=== PATIENT | female | born 1935 | race Caucasian/White ===

== ENCOUNTER 2017-06-06 23:23 | Inpatient (IN) | payer BC, OTHER ==
[2017-06-07] MEDS ORDERED: DUONEB 0.5 MG/3 MG NEB ONE (00:40)
[2017-06-07] MEDS ORDERED: SOLU-Medrol 125 MG VIAL IVP ONE (00:40)
[2017-06-07] MEDS ORDERED: SOLU-Medrol 125 MG VIAL ONE (00:48)
--- NOTE | 2017-06-07 00:50 | DR.GENAD ---
HPI - PCP Primary Care Physician: Ashly LIZ - Complaint/Symptoms Chief Complaint Doctors Comments: Patient is complaining of SOB and problems breathing for the past two days. States she thought she was dying when she fist got her because she could not catch her breath. State she has a Symbicort inhaler that she got from her doctor today and has taken one dose today but it did not help. States she went to see her doctor in [place] today and his PA gave her the Symbicort inhaler. and she used it about two hours ago. State she is a patient of Dr. Liz in [place] and she does not have any home oxygen or nebulizers. States she has had a cough but denies fever or chills. She smokes 1/2 pack cigarettes daily but denies alcohol usage or drug usage. Chief Complaint:: TROUBLE BREATHING, HEADACHE, GENERALIZED WEAKNESS, CONGESTED Self Treatment fo Chief Complaint: WAS SEEN BY FAMILY DOCTOR TODAY. WAS GIVEN A SHOT AND CEFDINER 300MG BID LAST TAKEN AT 2230 AND 2 PUFF OF SYMBICORT AT 2230 - Nurses notes reviewed Nurses Notes Review: Yes - Source History Provided: Patient - Mode of Arrival Mode of Arrival: Ambulatory - Timing Onset of Chief Complaint: 06/04/17 Came on: Suddenly - Duration Duration: Constant How lon Duration: Hours - Location Location: SOB - Severity Severity: Severe - Modifying Factors Worsens:: walking Improves:: nothing PMH - PMH Past Medical History: Yes Past Medical History: Arthritis, COPD, Diabetes, Dyslipidemia, Hypertension, Sleep Apnea Past Surgical History: Yes Surgical History: Appendectomy, DETECTIVE AUTOMOBILE SECTION Surgery - Family History History of Family Medical Conditions: Yes Family Medical History: Diabetes Mellitus, [place], Hypertension Family Medical History Comment: cva - Social History Does patient currently use any type of tobacco product: Yes Have you used tobacco products in the last 12 months: Yes Type of Tobacco Use: Cigarettes How many years tobacco product used: 66 Does any household member use tobacco: No Alcohol Use: None Do you use any recreational Drugs:: No Lives With: Alone Lives Where: Home - infectious screening In the last 2 months have you had wt loss of >10#?: NO Have you had fever, night sweats or hemotysis?: No Have you traveled outside the country in the last 6 months?: No Isolation: Standard ROS - Review of Systems Constitutional: No Symptoms Reported, Weakness, Fatigue. negative: See HPI, Chills, Diaphoresis, Fever, Malaise, Irritable, Loss of Appetite, Other Eyes: No Symptoms Reported ENTM: No Symptoms Reported Respiratoy: No Symptoms Reported, Non-Productive Cough, Short of Breath, Wheezing. negative: See HPI, Productive Cough, Moist Cough, Dry Cough, Hacking Cough, Barking Cough, Brassy Cough, Orthopnea, Stridor, Hemoptysis, Other Cardiovascular: No Symptoms Reported. negative: See HPI, Chest Pain, Edema, Palpitations, Syncope, Cyanosis, Skin Mottling, Other Gastrointestinal/Abdominal: No Symptoms Reported. negative: See HPI, Abdominal Pain, Constipation, Diarrhea, Nausea, Vomiting, Food Intolerance, Other Genitourinary: No Symptoms Reported Neurological: No Symptoms Reported. negative: See HPI, Anxiety, Depressed, Emotional Problems, Headache, Numbness, Paresthesia, Pre-existing Deficit, Seizure, Tingling, Tremors, Weakness, Dizziness, Problems Walking, Speech Problem, Other Musculoskeletal: No Symptoms Reported Integumentary: No Symptoms Reported. negative: See HPI, Change in Color, Change in Hair/Nails, Dryness, Lesions, Lumps, Rash, Itching, Wound, Bruises, Juandice, Other Hematologic/Lymphatic: No Symptoms Reported Endocrine: No Symptoms Reported Psychiatric: No Symptoms Reported PE - Vital Signs Vitals: Temperature 97.6 F Pulse Rate [Left Radial] 59 Pulse Rate 59 Respiratory Rate 20 Blood Pressure [Left Arm] 209/94 Blood Pressure 152/64 O2 Sat by Pulse Oximetry 95 - General Limitations: No Limitations General Appearance: Alert, In Distress (moderate) - Head Head Exam: Normal Inspection, Atraumatic, Normocephalic - Eyes Eye exam: Normal Appearance, PERRL, EOMI. negative: Scleral Icterus, Conjunctival Injection, Nystagmus, Miosis, Mydrasis, Periorbital Swelling, Periorbital Tenderness, Other - ENT ENT Exam: Normal Exam, Normal Oropharynx, Normal External Ear Exam, Mucous Membranes Moist, TM's Normal Bilaterally External Ear Exam: Normal External Inspection TM/Canal Exam: Bilateral Normal Nose Exam: Normal Nose Exam Mouth Exam: Normal Inspection. negative: Drooling, Trismus, Lip Swelling, Tongue Elevation, Tongue Swelling, Laceration, Other Throat Exam: Normal Inspection. negative: Tonsillar Erythema, Tonsillomegaly, Tonsillar Exudate, R Peritonsillar Mass, L Peritonsillar Mass, Muffled Voice, Other - Neck Neck Exam: Normal Inspection, Full ROM, Trachea Midline. negative: Tenderness, Meningismus, Lymphadenopathy, Thyromegaly, Other - Chest Chest Inspection: Normal Inspection, Symmetric Chest Wall Rise - Respiratory Respiratory Exam: Normal Lung Sounds Bilat, Prolonged Expiratory Phase. negative: Accessory Muscle Use, Chest Wall Tenderness, Respiratory Distress, Stridor, Other Respiratory Exam: Bilateral Wheezing, Bilateral Rhonchi, Left Rales - Cardiovascular Cardiovascular Exam: Regular Rate, Normal Rhythm, Normal Heart Sounds, Systolic Murmur - Abdominal Exam Abdominal Exam: Normal Inspection, Normal Bowel Sounds, Soft. negative: Distention, Tenderness, Guarding, Rebound, Rigidity, Dimnished Bowel Sounds, Hyperactive Bowel Sounds, Hypoactive Bowel Sounds, Organomegaly, Trauma, Incision, Ascites, Mass, Bruit, Pulsatile Mass, Hernia, Other Abdominal Tenderness: negative: RUQ, RLQ, LUQ, LLQ, Epigastrium, Suprapubic, Diffuse, Mild, Moderate, Severe, Other - Extremities Extremities Exam: Normal Inspection, Full ROM, Normal Capillary Refill. negative: Tenderness, Edema, Joint Swelling, Calf Tenderness, Other - Back Back Exam: Normal Inspection, Full ROM. negative: Tenderness, (R) CVA Tenderness, (L) CVA Tenderness, Muscle Spasm, Paraspinal Tenderness, Vertebral Tenderness, Rashes, (R) Sciatic Notch Tenderness, (L) Sciatic Notch Tendern, (R ) Straight Leg Raise, (L) Straight Leg Raise, Other - Neurologic Neurological Exam: Alert, Oriented X3, CN II-XII Intact, Normal Gait, Reflexes Normal - Psychiatric Psychiatric Exam: Normal Affect, Normal Mood. negative: Depressed, Agitated, Anxious, Flat Affect, Manic, Homicidal Ideation, Suicidal Ideation, Other - Skin Skin Exam: Warm, Dry, Intact, Normal Color. negative: Rash, Cyanosis, Diaphoresis, Erythema, Pallor, Mottled, Other Course - Reevaluation 1st: Improved - Consultation Called: 03:06 Consultation Comments: [id number] awaiting return call from Dr. Johnson. Case management approved OBS admission status. - Education/Counseling Education/Counseling: Patient, Family Educated On: Treatment, Diagnosis, Needs for Follow Up ROR - Labs Reviewed Laboratory Results Reviewed?: Yes (all labs and x-ray results reviewed and discussed with patient and family) Result Diagrams: 06/07/17 00:54 06/07/17 00:54 Laboratory: WBC 5.8 X10^3/uL (3.6-10.0) 06/07/17 00:54 RBC 4.56 X10^6/uL (3.5-5.4) 06/07/17 00:54 Hgb 13.4 g/dL (12.0-16.0) 06/07/17 00:54 Hct 38.8 % (36.0-47.0) 06/07/17 00:54 MCV 85.2 fL (80.0-100.0) 06/07/17 00:54 MCH 29.5 pg (27.0-34.0) 06/07/17 00:54 MCHC 34.6 g/dL (33.0-35.0) 06/07/17 00:54 RDW 14.4 % (11.6-16.5) 06/07/17 00:54 Plt Count 177 X10^3/uL (150.0-450.0) 06/07/17 00:54 MPV 8.6 fL (7.4-11.0) 06/07/17 00:54 Neut % 77.5 % (42.0-75.0) H 06/07/17 00:54 Lymph % 10.2 % (21.0-51.0) L 06/07/17 00:54 [place] % 9.1 % (0.0-13.0) 06/07/17 00:54 Eos % 2.0 % (0.9-2.9) 06/07/17 00:54 Baso % 1.2 % (0.2-1.0) H 06/07/17 00:54 Neut # 4.5 x10^3/uL (2.2-4.8) 06/07/17 00:54 Lymph # 0.6 X10^3/uL (1.3-2.9) L 06/07/17 00:54 [place] # 0.5 x10^3/uL (0.3-0.8) 06/07/17 00:54 Eos # 0.1 x10^3/uL (0.0-0.2) 06/07/17 00:54 Baso # 0.1 X10^3/uL (0.0-0.1) 06/07/17 00:54 Absolute Nucleated RBC 0.0 /100WBC 06/07/17 00:54 INR Target Range - 06/07/17 00:54 INR 0.98 (0.8-1.3) 06/07/17 00:54 PTT 28.2 SECONDS (22.9-36.5) 06/07/17 00:54 PTT Comment - 06/07/17 00:54 D-Dimer 350 ng/mL (0-400) 06/07/17 00:54 Sodium 135 mmol/L (136-145) L 06/07/17 00:54 Corrected Sodium 137 mmol/L (136-145) 06/07/17 00:54 Potassium 3.9 mmol/L (3.5-5.1) 06/07/17 00:54 Chloride 99 mmol/L (98-107) 06/07/17 00:54 Carbon Dioxide 25.5 mmol/L (21-32) 06/07/17 00:54 BUN 27 mg/dL (7-18) H 06/07/17 00:54 Creatinine 1.39 mg/dL (0.55-1.02) H 06/07/17 00:54 Est GFR (MDRD) Af Amer 46 (>60) L 06/07/17 00:54 Est GFR (MDRD) Non-Af 38 (>60) L 06/07/17 00:54 Glucose 171 mg/dL (65-99) H 06/07/17 00:54 Calcium 9.3 mg/dL (8.5-10.1) 06/07/17 00:54 Corrected Calcium TNP 06/07/17 00:54 Magnesium 1.4 mg/dL (1.7-2.9) L 06/07/17 00:54 Total Bilirubin 0.40 mg/dL (0.2-1.0) 06/07/17 00:54 AST 23 Units/L (15-37) 06/07/17 00:54 ALT 26 Units/L (12-78) 06/07/17 00:54 Alkaline Phosphatase 67 Units/L (46-116) 06/07/17 00:54 Creatine Kinase 366 Units/L (26-192) H 06/07/17 00:54 CK-MB (CK-2) 4.0 ng/mL (0-4.0) 06/07/17 00:54 CK/CKMB % Calc 1.1 % (<4) 06/07/17 00:54 Troponin I < 0.02 ng/mL (0-1.5) 06/07/17 00:54 B-Natriuretic Peptide 63.9 pg/mL (0-79) 06/07/17 00:54 Total Protein 7.5 g/dL (6.4-8.2) 06/07/17 00:54 Albumin 3.8 g/dL (3.4-5.0) 06/07/17 00:54 Globulin 3.7 g/dL (2.5-4.5) 06/07/17 00:54 Albumin/Globulin Ratio 1.0 Ratio (1.1-2.1) L 06/07/17 00:54 - Diagnosis Discharge Problem: COPD with acute exacerbation, Hypoxemia, Accelerated hypertension, prob COngestive heart failure Bronchitis, acute Qualifiers: Bronchitis organism: other organism Qualified Code(s): J20.8 - Acute bronchitis due to other specified organisms - Discharge Plan Disposition: ADMITTED INPATIENT Condition: Stable - Follow ups/Referrals Follow ups/Referrals: JOS LIZ [Primary Care Provider] - 3 days - Instructions
[2017-06-07 01:03] LABS: BASOPHILS # (AUTO) 0.1 X10^3/uL (0.0-0.1); BASOPHILS % (AUTO) 1.2 % (0.2-1.0); EOSINOPHILS # (AUTO) 0.1 x10^3/uL (0.0-0.2); HEMATOCRIT 38.8 % (36.0-47.0); HEMOGLOBIN 13.4 g/dL (12.0-16.0); LYMPHOCYTES # (AUTO) 0.6 X10^3/uL (1.3-2.9); LYMPHOCYTES % (AUTO) 10.2 % (21.0-51.0); MEAN CORPUSCULAR HEMOGLOBIN 29.5 pg (27.0-34.0); MEAN CORPUSCULAR HGB CONC 34.6 g/dL (33.0-35.0); MEAN CORPUSCULAR VOLUME 85.2 fL (80.0-100.0); MEAN PLATELET VOLUME 8.6 fL (7.4-11.0); MONOCYTES # (AUTO) 0.5 x10^3/uL (0.3-0.8); MONOCYTES % (AUTO) 9.1 % (0.0-13.0); NEUTROPHILS # (AUTO) 4.5 x10^3/uL (2.2-4.8); NEUTROPHILS % (AUTO) 77.5 % (42.0-75.0); PLATELET COUNT 177 X10^3/uL (150.0-450.0); RED BLOOD COUNT 4.56 X10^6/uL (3.5-5.4); RED CELL DISTRIBUTION WIDTH 14.4 % (11.6-16.5); WHITE BLOOD COUNT 5.8 X10^3/uL (3.6-10.0)
[2017-06-07 01:24] LABS: BLOOD UREA NITROGEN 27 mg/dL (7-18); CALCIUM 9.3 mg/dL (8.5-10.1); CARBON DIOXIDE 25.5 mmol/L (21-32); CHLORIDE 99 mmol/L (98-107); COR NA(FOR HYPERGLY) 137 mmol/L (136-145); CREATININE 1.39 mg/dL (0.55-1.02); SODIUM 135 mmol/L (136-145); TROPONIN I < 0.02 ng/mL (0-1.5); eGFR BLACK RACES 46 (>60); eGFR NON BLACK RACES 38 (>60)
[2017-06-07 01:32] LABS: ALANINE AMINOTRANSFERASE 26 Units/L (12-78); ALBUMIN 3.8 g/dL (3.4-5.0); ALKALINE PHOSPHATASE 67 Units/L (46-116); ASPARTATE AMINO TRANSFERASE 23 Units/L (15-37); CKMB % 1.1 % (<4); CREATINE KINASE 366 Units/L (26-192); MAGNESIUM 1.4 mg/dL (1.7-2.9); TOTAL PROTEIN 7.5 g/dL (6.4-8.2)
--- NOTE | 2017-06-07 01:59 | RAD ---
Chest, one-view Indication: Shortness of breath Comparison: 01/17/2014 Findings: Heart size is normal for technique. There is mild right basilar atelectasis. No focal conso lidation, significant effusion or pneumothorax is identified. Osseous thorax is unremarkable. Impression: No acute cardiopulmonary abnormality. Reported By:
[2017-06-07] MEDS ORDERED: LASIX IVP ONE ×2 (02:13→02:18)
[2017-06-07] MEDS ORDERED: CATAPRES TAB 0.2 MG PO ONE (02:55)
[2017-06-07] MEDS ORDERED: LEVAQUIN PREMIX IV 500 MG 500 MG/100 ML BAG IV ONE ×2 (02:56→03:04)
[2017-06-07] MEDS ORDERED: CATAPRES TAB 0.2 MG ONE (03:04)
[2017-06-07] MEDS ORDERED: DUONEB 0.5 MG/3 MG NEB SCH (05:00)
[2017-06-07 05:47] VITALS: BMI 26.3
[2017-06-07 06:16] LABS: CALCIUM 9.5 mg/dL (8.5-10.1); CARBON DIOXIDE 28.3 mmol/L (21-32); CREATININE 1.52 mg/dL (0.55-1.02)
[2017-06-07] MEDS: HumuLIN R SC SCH ×4 (06:49→21:25)
[2017-06-07] MEDS: NS 1000 ML 1,000 ML IV SCH (06:50)
[2017-06-07] MEDS ORDERED: XOPENEX 1.25 MG/3 ML NEBULE NEB SCH (07:00)
[2017-06-07] MEDS ORDERED: LEVAQUIN PREMIX IV 500 MG 500 MG/100 ML BAG IV SCH (09:00)
[2017-06-07] MEDS: ASPIRIN EC 81 MG PO SCH (09:18)
[2017-06-07] MEDS: XOPENEX 1.25 MG/3 ML NEBULE NEB SCH ×4 (09:32→21:25)
[2017-06-07] MEDS: LOPRESSOR TAB 25 MG PO SCH ×2 (10:38→21:24)
[2017-06-07] MEDS ORDERED: TYLENOL 325 MG TAB PO ONE (14:29)
[2017-06-07 14:31] LABS: BILIRUBIN,URINE NEGATIVE (NEGATIVE); BLOOD/HEMOGLOBIN,URINE NEGATIVE (NEGATIVE); GLUCOSE, URINE 4+ (NEGATIVE); KETONES,URINE NEGATIVE (NEGATIVE); LEUKOCYTE ESTERASE ,URINE NEGATIVE (NEGATIVE); NITRITES,URINE NEGATIVE (NEGATIVE); PROTEIN,URINE NEGATIVE (NEGATIVE); UROBILINOGEN,URINE NORMAL (NORMAL)
[2017-06-07 14:36] LABS: APPEARANCE,URINE HAZY (CLEAR); COLOR,URINE YELLOW (YELLOW)
[2017-06-07 14:46] LABS: BACTERIA,URINE NEGATIVE /HPF (NEGATIVE); RBC,URINE 0-2 /HPF (NEGATIVE); SQUAMOUS EPITHELIAL CELL,UR NEGATIVE /HPF (NEGATIVE)
[2017-06-07] MEDS: RESTORIL CAP 15 MG PO PRN (21:24)
[2017-06-07] MEDS: TYLENOL 325 MG TAB PO PRN (22:02)
[2017-06-08] MEDS: NS 1000 ML 1,000 ML IV SCH (05:50)
[2017-06-08] MEDS: HumuLIN R SC SCH ×5 (05:57→21:46)
[2017-06-08 06:18] LABS: BASOPHILS % (AUTO) 0.1 % (0.2-1.0); EOSINOPHILS % (AUTO) 0.1 % (0.9-2.9); HEMATOCRIT 35.8 % (36.0-47.0); HEMOGLOBIN 12.7 g/dL (12.0-16.0); LYMPHOCYTES # (AUTO) 0.7 X10^3/uL (1.3-2.9); LYMPHOCYTES % (AUTO) 8.3 % (21.0-51.0); MEAN CORPUSCULAR HEMOGLOBIN 29.9 pg (27.0-34.0); MEAN CORPUSCULAR HGB CONC 35.4 g/dL (33.0-35.0); MEAN CORPUSCULAR VOLUME 84.5 fL (80.0-100.0); MEAN PLATELET VOLUME 9.1 fL (7.4-11.0); MONOCYTES # (AUTO) 0.5 x10^3/uL (0.3-0.8); MONOCYTES % (AUTO) 6.7 % (0.0-13.0); NEUTROPHILS # (AUTO) 6.7 x10^3/uL (2.2-4.8); NEUTROPHILS % (AUTO) 84.8 % (42.0-75.0); PLATELET COUNT 173 X10^3/uL (150.0-450.0); RED BLOOD COUNT 4.24 X10^6/uL (3.5-5.4); RED CELL DISTRIBUTION WIDTH 14.5 % (11.6-16.5)
[2017-06-08 06:37] LABS: ALANINE AMINOTRANSFERASE 24 Units/L (12-78); ALBUMIN 3.5 g/dL (3.4-5.0); ALKALINE PHOSPHATASE 55 Units/L (46-116); ASPARTATE AMINO TRANSFERASE 24 Units/L (15-37); BLOOD UREA NITROGEN 31 mg/dL (7-18); CARBON DIOXIDE 27.1 mmol/L (21-32); CHLORIDE 97 mmol/L (98-107); COR NA(FOR HYPERGLY) 135 mmol/L (136-145); CREATININE 1.23 mg/dL (0.55-1.02); SODIUM 133 mmol/L (136-145); eGFR BLACK RACES 53 (>60); eGFR NON BLACK RACES 44 (>60)
[2017-06-08] MEDS: XOPENEX 1.25 MG/3 ML NEBULE NEB SCH ×4 (08:48→20:43)
[2017-06-08] MEDS: LEVAQUIN PREMIX IV 250 MG 250 MG/50 ML BAG IV SCH (09:23)
[2017-06-08] MEDS: LOPRESSOR TAB 25 MG PO SCH ×3 (09:23→21:46)
[2017-06-08] MEDS: ASPIRIN EC 81 MG PO SCH (09:23)
[2017-06-08] MEDS: SOLU-Medrol 40 MG VIAL IVP SCH ×2 (09:29→16:33)
[2017-06-08] MEDS ORDERED: ASCORBIC ACID PO SCH (17:45)
[2017-06-08] MEDS ORDERED: GLIPIZIDE PO SCH (21:00)
[2017-06-08] MEDS ORDERED: PATIENT'S HOME MEDICATION (Simvastatin [Simvastatin] 1 TAB) PO SCH (21:00)
[2017-06-08] MEDS: K-DUR TAB 20 MEQ PO SCH (21:44)
[2017-06-08] MEDS: TYLENOL 325 MG TAB PO PRN (21:44)
[2017-06-08] MEDS: ZOCOR TAB 40 MG PO SCH (21:45)
[2017-06-09] MEDS: SOLU-Medrol 40 MG VIAL IVP SCH ×3 (01:46→17:02)
[2017-06-09 05:22] LABS: ALANINE AMINOTRANSFERASE 28 Units/L (12-78); ALBUMIN 3.6 g/dL (3.4-5.0); ALKALINE PHOSPHATASE 58 Units/L (46-116); ASPARTATE AMINO TRANSFERASE 38 Units/L (15-37); BLOOD UREA NITROGEN 35 mg/dL (7-18); CALCIUM 9.1 mg/dL (8.5-10.1); CARBON DIOXIDE 27.2 mmol/L (21-32); CHLORIDE 97 mmol/L (98-107); COR NA(FOR HYPERGLY) 137 mmol/L (136-145); CREATININE 1.24 mg/dL (0.55-1.02); SODIUM 133 mmol/L (136-145); TOTAL PROTEIN 7.3 g/dL (6.4-8.2); eGFR BLACK RACES 53 (>60); eGFR NON BLACK RACES 44 (>60)
[2017-06-09 05:34] LABS: BASOPHILS % (AUTO) 0.1 % (0.2-1.0); HEMATOCRIT 37.4 % (36.0-47.0); HEMOGLOBIN 13.1 g/dL (12.0-16.0); LYMPHOCYTES # (AUTO) 0.5 X10^3/uL (1.3-2.9); LYMPHOCYTES % (AUTO) 5.5 % (21.0-51.0); MEAN CORPUSCULAR HEMOGLOBIN 30.2 pg (27.0-34.0); MEAN CORPUSCULAR HGB CONC 35.2 g/dL (33.0-35.0); MEAN CORPUSCULAR VOLUME 85.8 fL (80.0-100.0); MEAN PLATELET VOLUME 9.2 fL (7.4-11.0); MONOCYTES # (AUTO) 0.1 x10^3/uL (0.3-0.8); MONOCYTES % (AUTO) 1.6 % (0.0-13.0); NEUTROPHILS % (AUTO) 92.8 % (42.0-75.0); PLATELET COUNT 168 X10^3/uL (150.0-450.0); RED BLOOD COUNT 4.35 X10^6/uL (3.5-5.4); RED CELL DISTRIBUTION WIDTH 14.2 % (11.6-16.5); WHITE BLOOD COUNT 8.6 X10^3/uL (3.6-10.0)
[2017-06-09] MEDS: NS 1000 ML 1,000 ML IV SCH (05:57)
[2017-06-09 06:07] LABS: PLATELET MORPHOLOGY COMMENT NORMAL (NORMAL)
[2017-06-09] MEDS: GLUCOTROL PO SCH ×2 (06:19→16:58)
[2017-06-09] MEDS: HumuLIN R SC SCH ×4 (06:19→20:38)
[2017-06-09] MEDS ORDERED: MAGNESIUM OXIDE 200 MG PO SCH (09:00)
[2017-06-09] MEDS: LEVAQUIN PREMIX IV 250 MG 250 MG/50 ML BAG IV SCH (09:00)
[2017-06-09] MEDS ORDERED: PATIENT'S HOME MEDICATION (Cholecalciferol (Vitamin D3) [Vitamin D3] 1 TAB) PO SCH (09:00)
[2017-06-09] MEDS ORDERED: PATIENT'S HOME MEDICATION (Losartan Potassium [Losartan Potassium] 1 TAB) PO SCH (09:00)
[2017-06-09] MEDS: VITAMIN D3 PO SCH (09:14)
[2017-06-09] MEDS: MAXZIDE 37.5/25 MG PO SCH (09:14)
[2017-06-09] MEDS: VITAMIN C PO SCH (09:15)
[2017-06-09] MEDS: ASPIRIN EC 81 MG PO SCH (09:15)
[2017-06-09] MEDS: LOPRESSOR TAB 25 MG PO SCH ×2 (09:15→20:36)
[2017-06-09] MEDS: COZAAR PO SCH (09:16)
[2017-06-09] MEDS: MAG-OX TAB PO SCH (09:17)
[2017-06-09] MEDS: XOPENEX 1.25 MG/3 ML NEBULE NEB SCH ×3 (09:46→20:50)
--- NOTE | 2017-06-09 10:48 | RAD ---
Examination: Portable AP chest History: COPD, SOB Comparison reference: 06/07/2017 Findings: Continued normal heart size. There is no acute pulmonary or pleural abnormality demonstrate d. Soft tissue densities at the right and left cardiophrenic angles consistent with prominent epicard ial fat pads. There is no evidence for pneumonia, pulmonary edema or pneumothorax. Impression: No acute process demonstrated. Reported By:
[2017-06-09] MEDS: SNACK - Diabetic Appropriate PO SCH ×2 (10:49→21:28)
--- NOTE | 2017-06-09 14:25 | CT ---
HISTORY: Diminished breath sounds at the lung bases, shortness of breath, COPD Study: CT chest without contrast Comparison: Same day radiograph Technique: Multiple axial images of the chest were obtained from the thoracic inlet to the upper abdo men without IV contrast. Dose reduction techniques including Automated Exposure Control (AEC) and ad justment of mA and kV were utilized. Findings: Please note evaluation is limited without IV contrast. Vessel patency not assessed. Normal appearance of the heart and pericardium. There is scattered calcified plaque in the thoracic aorta which is nor mal caliber. The lungs are clear without effusion, consolidation, or pneumothorax. Airways are patent . No bulky lymphadenopathy identified. The soft tissues and osseous structures appear intact. The visualized portions of the upper abdomen a re grossly unremarkable. IMPRESSION: 1.Negative noncontrast chest CT. Reported By:
[2017-06-09] MEDS: ROBITUSSIN DM PO PRN ×2 (16:00→20:37)
[2017-06-09] MEDS: PULMICORT NEB TX 0.5 MG NEB SCH ×2 (16:25→20:50)
[2017-06-09] MEDS: VISTARIL PO PRN (19:05)
[2017-06-09] MEDS: ZOCOR TAB 40 MG PO SCH (20:36)
[2017-06-09] MEDS: K-DUR TAB 20 MEQ PO SCH (20:36)
[2017-06-10] MEDS: SOLU-Medrol 40 MG VIAL IVP SCH ×3 (01:11→16:46)
[2017-06-10] MEDS: NS 1000 ML 1,000 ML IV SCH ×2 (04:58→16:49)
[2017-06-10 05:34] LABS: ALANINE AMINOTRANSFERASE 34 Units/L (12-78); ALBUMIN 3.6 g/dL (3.4-5.0); ALKALINE PHOSPHATASE 59 Units/L (46-116); ASPARTATE AMINO TRANSFERASE 37 Units/L (15-37); BLOOD UREA NITROGEN 30 mg/dL (7-18); CALCIUM 8.8 mg/dL (8.5-10.1); CARBON DIOXIDE 26.7 mmol/L (21-32); CHLORIDE 93 mmol/L (98-107); COR NA(FOR HYPERGLY) 134 mmol/L (136-145); CREATININE 1.07 mg/dL (0.55-1.02); SODIUM 131 mmol/L (136-145); TOTAL PROTEIN 7.2 g/dL (6.4-8.2); eGFR BLACK RACES > 60 (>60); eGFR NON BLACK RACES 52 (>60)
[2017-06-10] MEDS: HumuLIN R SC PRN ×3 (05:38→21:01)
[2017-06-10 06:17] LABS: BASOPHILS % (AUTO) 0 % (0.2-1.0); HEMATOCRIT 39.3 % (36.0-47.0); HEMOGLOBIN 13.7 g/dL (12.0-16.0); LYMPHOCYTES # (AUTO) 0.4 X10^3/uL (1.3-2.9); LYMPHOCYTES % (AUTO) 3.8 % (21.0-51.0); MEAN CORPUSCULAR HEMOGLOBIN 29.6 pg (27.0-34.0); MEAN CORPUSCULAR VOLUME 84.6 fL (80.0-100.0); MEAN PLATELET VOLUME 9.2 fL (7.4-11.0); MONOCYTES # (AUTO) 0.2 x10^3/uL (0.3-0.8); MONOCYTES % (AUTO) 1.8 % (0.0-13.0); NEUTROPHILS # (AUTO) 8.9 x10^3/uL (2.2-4.8); NEUTROPHILS % (AUTO) 94.4 % (42.0-75.0); PLATELET COUNT 185 X10^3/uL (150.0-450.0); RED BLOOD COUNT 4.64 X10^6/uL (3.5-5.4); WHITE BLOOD COUNT 9.4 X10^3/uL (3.6-10.0)
[2017-06-10 06:57] LABS: BAND NEUTROPHILS % 1 % (0-10); PLATELET MORPHOLOGY COMMENT NORMAL (NORMAL)
[2017-06-10] MEDS: VITAMIN C PO SCH (09:11)
[2017-06-10] MEDS: GLUCOTROL PO SCH ×2 (09:11→16:46)
[2017-06-10] MEDS: MAG-OX TAB PO SCH (09:11)
[2017-06-10] MEDS: COZAAR PO SCH (09:12)
[2017-06-10] MEDS: MAXZIDE 37.5/25 MG PO SCH (09:12)
[2017-06-10] MEDS: LOPRESSOR TAB 25 MG PO SCH ×2 (09:12→21:00)
[2017-06-10] MEDS: ASPIRIN EC 81 MG PO SCH (09:12)
[2017-06-10] MEDS: LEVAQUIN PREMIX IV 250 MG 250 MG/50 ML BAG IV SCH (09:14)
[2017-06-10] MEDS ORDERED: COZAAR PO SCH (09:30)
[2017-06-10] MEDS: XOPENEX 1.25 MG/3 ML NEBULE NEB SCH ×3 (09:39→16:19)
[2017-06-10] MEDS: PULMICORT NEB TX 0.5 MG NEB SCH ×2 (09:39→20:49)
[2017-06-10] MEDS: ROBITUSSIN DM PO PRN ×3 (09:55→21:00)
[2017-06-10] MEDS: VISTARIL PO PRN ×2 (09:58→21:01)
[2017-06-10] MEDS: VITAMIN D3 PO SCH (09:59)
[2017-06-10] MEDS ORDERED: CATAPRES TAB 0.1 MG ONE (16:39)
[2017-06-10] MEDS ORDERED: CATAPRES TAB 0.1 MG PO ONE (16:53)
[2017-06-10] MEDS: SNACK - Diabetic Appropriate PO SCH (20:11)
[2017-06-10] MEDS: Atrovent NEB TX 0.02% NEB SCH (20:49)
[2017-06-10] MEDS: ZOCOR TAB 40 MG PO SCH (21:00)
[2017-06-10] MEDS: K-DUR TAB 20 MEQ PO SCH (21:00)
[2017-06-11] MEDS: NS 1000 ML 1,000 ML IV SCH (04:29)
[2017-06-11 05:23] LABS: ALANINE AMINOTRANSFERASE 37 Units/L (12-78); ALBUMIN 3.4 g/dL (3.4-5.0); ALKALINE PHOSPHATASE 52 Units/L (46-116); ASPARTATE AMINO TRANSFERASE 38 Units/L (15-37); BLOOD UREA NITROGEN 29 mg/dL (7-18); CALCIUM 8.4 mg/dL (8.5-10.1); CARBON DIOXIDE 29.2 mmol/L (21-32); CHLORIDE 93 mmol/L (98-107); COR NA(FOR HYPERGLY) 132 mmol/L (136-145); CREATININE 0.99 mg/dL (0.55-1.02); SODIUM 129 mmol/L (136-145); TOTAL PROTEIN 6.7 g/dL (6.4-8.2); eGFR BLACK RACES > 60 (>60); eGFR NON BLACK RACES 57 (>60)
[2017-06-11 05:38] LABS: BASOPHILS % (AUTO) 0.1 % (0.2-1.0); HEMATOCRIT 38.8 % (36.0-47.0); HEMOGLOBIN 13.5 g/dL (12.0-16.0); LYMPHOCYTES # (AUTO) 0.3 X10^3/uL (1.3-2.9); LYMPHOCYTES % (AUTO) 4.3 % (21.0-51.0); MEAN CORPUSCULAR HEMOGLOBIN 29.7 pg (27.0-34.0); MEAN CORPUSCULAR HGB CONC 34.8 g/dL (33.0-35.0); MEAN CORPUSCULAR VOLUME 85.3 fL (80.0-100.0); MEAN PLATELET VOLUME 8.9 fL (7.4-11.0); MONOCYTES # (AUTO) 0.3 x10^3/uL (0.3-0.8); MONOCYTES % (AUTO) 4.8 % (0.0-13.0); NEUTROPHILS # (AUTO) 6.4 x10^3/uL (2.2-4.8); NEUTROPHILS % (AUTO) 90.8 % (42.0-75.0); PLATELET COUNT 167 X10^3/uL (150.0-450.0); RED BLOOD COUNT 4.56 X10^6/uL (3.5-5.4); RED CELL DISTRIBUTION WIDTH 14.1 % (11.6-16.5)
[2017-06-11 05:56] LABS: PLATELET MORPHOLOGY COMMENT NORMAL (NORMAL)
[2017-06-11] MEDS: HumuLIN R SC PRN ×3 (06:02→17:09)
[2017-06-11] MEDS: LOPRESSOR TAB 25 MG PO SCH ×2 (09:08→20:44)
[2017-06-11] MEDS: LEVAQUIN PREMIX IV 250 MG 250 MG/50 ML BAG IV SCH (09:08)
[2017-06-11] MEDS: ASPIRIN EC 81 MG PO SCH (09:08)
[2017-06-11] MEDS: MAG-OX TAB PO SCH (09:08)
[2017-06-11] MEDS: VITAMIN C PO SCH (09:08)
[2017-06-11] MEDS: GLUCOTROL PO SCH ×2 (09:09→17:09)
[2017-06-11] MEDS: VITAMIN D3 PO SCH (09:09)
[2017-06-11] MEDS: COZAAR PO SCH (09:09)
[2017-06-11] MEDS: MAXZIDE 37.5/25 MG PO SCH (09:09)
[2017-06-11] MEDS: PULMICORT NEB TX 0.5 MG NEB SCH ×2 (09:11→20:27)
[2017-06-11] MEDS: Atrovent NEB TX 0.02% NEB SCH ×4 (09:12→20:27)
[2017-06-11] MEDS: ROBITUSSIN DM PO PRN ×2 (10:34→20:44)
[2017-06-11] MEDS ORDERED: CATAPRES TAB 0.1 MG PO ONE (15:34)
[2017-06-11] MEDS: VISTARIL PO PRN (20:44)
[2017-06-11] MEDS: ZOCOR TAB 40 MG PO SCH (20:44)
[2017-06-11] MEDS: K-DUR TAB 20 MEQ PO SCH (20:49)
[2017-06-11] MEDS: SNACK - Diabetic Appropriate PO SCH (20:52)
[2017-06-12 06:06] LABS: BASOPHILS % (AUTO) 0.1 % (0.2-1.0); EOSINOPHILS % (AUTO) 0.1 % (0.9-2.9); HEMATOCRIT 39.8 % (36.0-47.0); HEMOGLOBIN 13.9 g/dL (12.0-16.0); LYMPHOCYTES # (AUTO) 0.6 X10^3/uL (1.3-2.9); LYMPHOCYTES % (AUTO) 9.6 % (21.0-51.0); MEAN CORPUSCULAR HEMOGLOBIN 29.9 pg (27.0-34.0); MEAN CORPUSCULAR HGB CONC 34.9 g/dL (33.0-35.0); MEAN CORPUSCULAR VOLUME 85.7 fL (80.0-100.0); MEAN PLATELET VOLUME 8.7 fL (7.4-11.0); MONOCYTES # (AUTO) 0.7 x10^3/uL (0.3-0.8); MONOCYTES % (AUTO) 10.6 % (0.0-13.0); NEUTROPHILS % (AUTO) 79.6 % (42.0-75.0); PLATELET COUNT 148 X10^3/uL (150.0-450.0); RED BLOOD COUNT 4.64 X10^6/uL (3.5-5.4); RED CELL DISTRIBUTION WIDTH 13.8 % (11.6-16.5); WHITE BLOOD COUNT 6.2 X10^3/uL (3.6-10.0)
[2017-06-12] MEDS: GLUCOTROL PO SCH ×2 (06:07→16:43)
[2017-06-12 06:13] LABS: ALANINE AMINOTRANSFERASE 38 Units/L (12-78); ALBUMIN 3.1 g/dL (3.4-5.0); ALKALINE PHOSPHATASE 51 Units/L (46-116); ASPARTATE AMINO TRANSFERASE 36 Units/L (15-37); BLOOD UREA NITROGEN 36 mg/dL (7-18); CALCIUM 8.5 mg/dL (8.5-10.1); CARBON DIOXIDE 28.8 mmol/L (21-32); CHLORIDE 93 mmol/L (98-107); COR CA(FOR HYPOALB) 9.2 mg/dL (8.5-10.1); COR NA(FOR HYPERGLY) 131 mmol/L (136-145); CREATININE 1.05 mg/dL (0.55-1.02); SODIUM 130 mmol/L (136-145); TOTAL PROTEIN 6.2 g/dL (6.4-8.2); eGFR BLACK RACES > 60 (>60); eGFR NON BLACK RACES 53 (>60)
[2017-06-12] MEDS: NS 1000 ML 1,000 ML IV SCH (06:14)
[2017-06-12] MEDS ORDERED: MAG-OX TAB PO PRN (06:30)
[2017-06-12] MEDS ORDERED: K-LYTE EFFERVESCENT PO PRN (06:30)
[2017-06-12] MEDS ORDERED: MAGNESIUM SULFATE 1 GM/100 mL PREMIX 1 GM/100 ML BAG IV PRN (06:30)
[2017-06-12] MEDS: K-RIDER 10 MEQ/NS 100 ML 10 MEQ/100 ML BAG IV PRN ×4 (07:19→11:50)
[2017-06-12] MEDS: VITAMIN C PO SCH (08:49)
[2017-06-12] MEDS: ASPIRIN EC 81 MG PO SCH (08:50)
[2017-06-12] MEDS: MAG-OX TAB PO SCH (08:50)
[2017-06-12] MEDS: MAXZIDE 37.5/25 MG PO SCH (08:50)
[2017-06-12] MEDS: LOPRESSOR TAB 25 MG PO SCH ×2 (08:51→20:46)
[2017-06-12] MEDS: COZAAR PO SCH (08:51)
[2017-06-12] MEDS: LEVAQUIN PREMIX IV 250 MG 250 MG/50 ML BAG IV SCH (08:54)
[2017-06-12] MEDS: VITAMIN D3 PO SCH (08:54)
[2017-06-12] MEDS: ROBITUSSIN DM PO PRN ×2 (08:55→20:46)
[2017-06-12] MEDS: Atrovent NEB TX 0.02% NEB SCH ×4 (09:43→20:15)
[2017-06-12] MEDS: PULMICORT NEB TX 0.5 MG NEB SCH (09:43)
--- NOTE | 2017-06-12 09:55 | RAD ---
HISTORY: COPD. Exacerbation. Hypoxia. Study: AP upright chest Comparison: CT 06/09/2017, plain films 06/09/2017 Findings: Mild hyperinflation noted. The lungs are clear. The heart size is normal. Mild tortuosity of the aort a is present. IMPRESSION: 1. Mild hyperinflation. 2. No radiographic evidence of acute cardiopulmonary disease or significant change is noted when comp ared to the prior examination. Reported By:
--- NOTE | 2017-06-12 13:39 | DR.H&P ---
H&P - History & Physical for Day of: H&P Date: 06/07/17 - Chief Complaint Chief Complaint: CCC, SOB - Allergies Allergies/Adverse Reactions: Allergies Allergy/AdvReac Type Severity Reaction Status Date / Time alendronate sodium Allergy Verified 06/07/17 00:56 [From Fosamax] Penicillins Allergy Verified 06/06/17 23:46 Sulfa (Sulfonamide Allergy Verified 06/07/17 00:56 Antibiotics) [SULFA] - History of Present Illness History of Present Illness: Patient is complaining of SOB and problems breathing for the past two days. States she thought she was dying when she fist got her because she could not catch her breath. State she has a Symbicort inhaler that she got from her doctor today and has taken one dose today but it did not help. States she went to see her doctor in [place] today and his PA gave her the Symbicort inhaler. and she used it about two hours ago. State she is a patient of Dr. Liz in [place] and she does not have any home oxygen or nebulizers. States she has had a cough but denies fever or chills. She smokes 1/2 pack cigarettes daily but denies alcohol usage or drug usage. 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 - Family History Family Medical History: Diabetes Mellitus, [place], Hypertension - Social History Does patient currently use any type of tobacco product: Yes Have you used tobacco products in the last 12 months: Yes Type of Tobacco Use: Cigarettes How many years tobacco product used: 66 Does any household member use tobacco: No Alcohol Use: None Drug Use: None - Medications Home Medications: Budesonide-Formoterol [SYMBICORT INH 160-4.5 mcg (10.2 g) *] 1 puff INH BID 11/18 [History Confirmed 06/07/17] Cefdinir [OMNICEF CAP 300 mg *] 1 tab PO BID 06/07/17 [History Confirmed ] Losartan Potassium [Losartan Potassium] 1 tab PO DAILY 06/07/17 [History Confirmed 06/07/17] Magnesium Oxide [Mag-Oxide] 200 mg PO DAILY 06/07/17 [History Confirmed 06/07/17 ] Linagliptin [Tradjenta] 1 tab PO DAILY 06/11/17 [History Confirmed 06/11/17] - Review of Systems Constitutional: Weakness Eyes: No Symptoms Reported ENT: No Symptoms Reported Respiratory: Cough, Shortness of Breath, Wheezing Cardiovascular: No Symptoms Reported Gastrointestinal: No Symptoms Reported Genitourinary: No Symptoms Reported Musculoskeletal: No Symptoms Reported Skin: No Symptoms Reported Neurological: No Symptoms Reported - Physical Exam Vital Signs: Temperature 98.3 F Pulse Rate [Left Radial] 61 Pulse Rate 74 Respiratory Rate 20 Blood Pressure [Left Arm] 188/94 Blood Pressure 152/64 O2 Sat by Pulse Oximetry 100 Oriented: Normal Eyes: Normal Ear: Normal Nose: Normal Throat: Normal Respiratory: Rhonchi Throughout, Wheezes Throughout Cardiovascular: Normal : Normal Palpation: Normal Tenderness: Normal Musculoskeletal: Back:Thoracic Psychiatric: Anxiety Mood Description: Calm Speech Pattern: Clear, Appropriate - Assessment/Plan (1) COPD with acute exacerbation Status: Acute Plan: PLAN TO ADMIT FOR IV ATBX, RESP THERAPY. SUPPLEMENTAL O2, SPUTUM CULTURE. RESUME HOME MEDS, BP CONTROL (2) Accelerated hypertension Status: Acute (3) Hypoxemia Status: Acute
[2017-06-12] MEDS: NICOTINE PATCH TD SCH (14:12)
[2017-06-12] MEDS: HumuLIN R SC PRN ×2 (16:44→20:49)
[2017-06-12] MEDS: DECADRON JET NEB (RESP USE) NEB SCH (20:15)
[2017-06-12] MEDS: ZOCOR TAB 40 MG PO SCH (20:46)
[2017-06-12] MEDS: K-DUR TAB 20 MEQ PO SCH (20:47)
[2017-06-12] MEDS: VISTARIL PO PRN (20:47)
[2017-06-12] MEDS: SNACK - Diabetic Appropriate PO SCH (20:55)
[2017-06-13] MEDS: XANAX PO PRN ×2 (00:12→20:49)
[2017-06-13] MEDS: NS 1000 ML 1,000 ML IV SCH (05:29)
[2017-06-13] MEDS: GLUCOTROL PO SCH ×2 (06:03→17:00)
[2017-06-13 08:50] LABS: BASOPHILS % (AUTO) 0.2 % (0.2-1.0); EOSINOPHILS % (AUTO) 0.6 % (0.9-2.9); HEMATOCRIT 44.3 % (36.0-47.0); HEMOGLOBIN 15.3 g/dL (12.0-16.0); LYMPHOCYTES # (AUTO) 0.5 X10^3/uL (1.3-2.9); LYMPHOCYTES % (AUTO) 8.4 % (21.0-51.0); MEAN CORPUSCULAR HEMOGLOBIN 29.4 pg (27.0-34.0); MEAN CORPUSCULAR HGB CONC 34.6 g/dL (33.0-35.0); MEAN CORPUSCULAR VOLUME 85.1 fL (80.0-100.0); MEAN PLATELET VOLUME 8.3 fL (7.4-11.0); MONOCYTES # (AUTO) 0.5 x10^3/uL (0.3-0.8); MONOCYTES % (AUTO) 8.5 % (0.0-13.0); NEUTROPHILS # (AUTO) 5.1 x10^3/uL (2.2-4.8); NEUTROPHILS % (AUTO) 82.3 % (42.0-75.0); PLATELET COUNT 171 X10^3/uL (150.0-450.0); RED BLOOD COUNT 5.21 X10^6/uL (3.5-5.4); WHITE BLOOD COUNT 6.2 X10^3/uL (3.6-10.0)
[2017-06-13] MEDS: DECADRON JET NEB (RESP USE) NEB SCH ×2 (08:51→20:16)
[2017-06-13] MEDS: Atrovent NEB TX 0.02% NEB SCH ×4 (08:51→20:16)
[2017-06-13 09:02] LABS: CALCIUM 8.6 mg/dL (8.5-10.1); CARBON DIOXIDE 30.4 mmol/L (21-32); COR CA(FOR HYPOALB) 9.4 mg/dL (8.5-10.1); CREATININE 1.31 mg/dL (0.55-1.02)
[2017-06-13] MEDS: VITAMIN C PO SCH (09:05)
[2017-06-13] MEDS: MAXZIDE 37.5/25 MG PO SCH (09:06)
[2017-06-13] MEDS: VITAMIN D3 PO SCH (09:06)
[2017-06-13] MEDS: MAG-OX TAB PO SCH (09:06)
[2017-06-13] MEDS: ASPIRIN EC 81 MG PO SCH (09:06)
[2017-06-13] MEDS: LOPRESSOR TAB 25 MG PO SCH ×2 (09:06→20:49)
[2017-06-13] MEDS: COZAAR PO SCH (09:06)
[2017-06-13] MEDS: NICOTINE PATCH TD SCH (09:08)
[2017-06-13] MEDS: LEVAQUIN PREMIX IV 250 MG 250 MG/50 ML BAG IV SCH (09:08)
[2017-06-13] MEDS: ROBITUSSIN DM PO PRN ×2 (09:08→20:58)
[2017-06-13] MEDS: HumuLIN R SC PRN ×3 (11:43→20:50)
[2017-06-13] MEDS: ZOCOR TAB 40 MG PO SCH (20:49)
[2017-06-13] MEDS: K-DUR TAB 20 MEQ PO SCH (20:49)
[2017-06-13] MEDS: SNACK - Diabetic Appropriate PO SCH (20:54)
[2017-06-14] MEDS: VISTARIL PO PRN ×2 (00:02→20:05)
[2017-06-14] MEDS: NS 1000 ML 1,000 ML IV SCH (05:49)
[2017-06-14] MEDS: GLUCOTROL PO SCH ×2 (06:13→16:31)
[2017-06-14 06:15] LABS: ALANINE AMINOTRANSFERASE 33 Units/L (12-78); ALKALINE PHOSPHATASE 57 Units/L (46-116); ASPARTATE AMINO TRANSFERASE 23 Units/L (15-37); BLOOD UREA NITROGEN 30 mg/dL (7-18); CALCIUM 8.7 mg/dL (8.5-10.1); CARBON DIOXIDE 33.2 mmol/L (21-32); CHLORIDE 91 mmol/L (98-107); COR CA(FOR HYPOALB) 9.5 mg/dL (8.5-10.1); COR NA(FOR HYPERGLY) 128 mmol/L (136-145); CREATININE 1.01 mg/dL (0.55-1.02); SODIUM 127 mmol/L (136-145); eGFR BLACK RACES > 60 (>60); eGFR NON BLACK RACES 56 (>60)
[2017-06-14 06:23] LABS: BASOPHILS % (AUTO) 0.1 % (0.2-1.0); EOSINOPHILS % (AUTO) 0.6 % (0.9-2.9); HEMATOCRIT 39.4 % (36.0-47.0); HEMOGLOBIN 13.9 g/dL (12.0-16.0); LYMPHOCYTES # (AUTO) 0.6 X10^3/uL (1.3-2.9); LYMPHOCYTES % (AUTO) 8.8 % (21.0-51.0); MEAN CORPUSCULAR HEMOGLOBIN 29.6 pg (27.0-34.0); MEAN CORPUSCULAR HGB CONC 35.3 g/dL (33.0-35.0); MEAN CORPUSCULAR VOLUME 83.9 fL (80.0-100.0); MEAN PLATELET VOLUME 8.9 fL (7.4-11.0); MONOCYTES # (AUTO) 0.6 x10^3/uL (0.3-0.8); NEUTROPHILS # (AUTO) 5.1 x10^3/uL (2.2-4.8); NEUTROPHILS % (AUTO) 81.5 % (42.0-75.0); PLATELET COUNT 150 X10^3/uL (150.0-450.0); RED CELL DISTRIBUTION WIDTH 14.1 % (11.6-16.5); WHITE BLOOD COUNT 6.3 X10^3/uL (3.6-10.0)
[2017-06-14] MEDS: MAG-OX TAB PO SCH (08:30)
[2017-06-14] MEDS: ASPIRIN EC 81 MG PO SCH (08:30)
[2017-06-14] MEDS: LOPRESSOR TAB 25 MG PO SCH ×2 (08:30→20:05)
[2017-06-14] MEDS: VITAMIN C PO SCH (08:30)
[2017-06-14] MEDS: VITAMIN D3 PO SCH (08:30)
[2017-06-14] MEDS: LEVAQUIN TAB 250 MG PO SCH (08:30)
[2017-06-14] MEDS: COZAAR PO SCH (08:30)
[2017-06-14] MEDS: NICOTINE PATCH TD SCH (08:30)
[2017-06-14] MEDS: DECADRON JET NEB (RESP USE) NEB SCH ×2 (08:49→21:28)
[2017-06-14] MEDS: Atrovent NEB TX 0.02% NEB SCH ×4 (08:49→21:27)
--- NOTE | 2017-06-14 09:03 | RAD ---
HISTORY: Decreased breath sounds lung bases, dyspnea, COPD Study: Single-view chest Comparison: June 12, 2017 and June 09, 2017 Findings: The lungs are hyperexpanded with biapical pleural thickening compatible with COPD. There is no lobar mass or consolidation. The heart is normal. There is no effusion or pneumothorax. IMPRESSION: No acute cardiopulmonary disease. Reported By:
[2017-06-14] MEDS: ROBITUSSIN DM PO PRN ×2 (10:33→16:30)
[2017-06-14] MEDS: HumuLIN R SC PRN ×3 (12:02→20:05)
[2017-06-14] MEDS: ZOCOR TAB 40 MG PO SCH (20:05)
[2017-06-14] MEDS: K-DUR TAB 20 MEQ PO SCH (20:05)
[2017-06-14] MEDS: XANAX PO PRN (20:05)
[2017-06-14] MEDS: SNACK - Diabetic Appropriate PO SCH (20:05)
[2017-06-15] MEDS: RESTORIL CAP 15 MG PO PRN (00:15)
[2017-06-15 05:13] LABS: BASOPHILS % (AUTO) 0.1 % (0.2-1.0); EOSINOPHILS # (AUTO) 0.1 x10^3/uL (0.0-0.2); EOSINOPHILS % (AUTO) 1.5 % (0.9-2.9); HEMATOCRIT 39.1 % (36.0-47.0); HEMOGLOBIN 13.7 g/dL (12.0-16.0); LYMPHOCYTES # (AUTO) 0.8 X10^3/uL (1.3-2.9); LYMPHOCYTES % (AUTO) 11.4 % (21.0-51.0); MEAN CORPUSCULAR HEMOGLOBIN 29.9 pg (27.0-34.0); MEAN CORPUSCULAR HGB CONC 35.1 g/dL (33.0-35.0); MEAN CORPUSCULAR VOLUME 85.1 fL (80.0-100.0); MEAN PLATELET VOLUME 8.8 fL (7.4-11.0); MONOCYTES # (AUTO) 0.7 x10^3/uL (0.3-0.8); MONOCYTES % (AUTO) 9.4 % (0.0-13.0); NEUTROPHILS # (AUTO) 5.8 x10^3/uL (2.2-4.8); NEUTROPHILS % (AUTO) 77.6 % (42.0-75.0); PLATELET COUNT 160 X10^3/uL (150.0-450.0); RED BLOOD COUNT 4.59 X10^6/uL (3.5-5.4); RED CELL DISTRIBUTION WIDTH 13.9 % (11.6-16.5); WHITE BLOOD COUNT 7.4 X10^3/uL (3.6-10.0)
[2017-06-15 05:25] LABS: ALANINE AMINOTRANSFERASE 30 Units/L (12-78); ALBUMIN 2.8 g/dL (3.4-5.0); ALKALINE PHOSPHATASE 55 Units/L (46-116); ASPARTATE AMINO TRANSFERASE 17 Units/L (15-37); BLOOD UREA NITROGEN 27 mg/dL (7-18); CALCIUM 8.5 mg/dL (8.5-10.1); CARBON DIOXIDE 32.5 mmol/L (21-32); CHLORIDE 94 mmol/L (98-107); COR CA(FOR HYPOALB) 9.5 mg/dL (8.5-10.1); CREATININE 1.04 mg/dL (0.55-1.02); SODIUM 131 mmol/L (136-145); eGFR BLACK RACES > 60 (>60); eGFR NON BLACK RACES 54 (>60)
[2017-06-15] MEDS: GLUCOTROL PO SCH (06:27)
[2017-06-15 08:29] VITALS: BP 152/70
[2017-06-15] MEDS: ASPIRIN EC 81 MG PO SCH (08:34)
[2017-06-15] MEDS: MAG-OX TAB PO SCH (08:35)
[2017-06-15] MEDS: NICOTINE PATCH TD SCH (08:35)
[2017-06-15] MEDS: COZAAR PO SCH (08:35)
[2017-06-15] MEDS: LEVAQUIN TAB 250 MG PO SCH (08:35)
[2017-06-15] MEDS: VITAMIN C PO SCH (08:35)
[2017-06-15] MEDS: LOPRESSOR TAB 25 MG PO SCH (08:35)
[2017-06-15] MEDS: VITAMIN D3 PO SCH (08:36)
[2017-06-15] MEDS: ROBITUSSIN DM PO PRN (08:36)
[2017-06-15] MEDS: Atrovent NEB TX 0.02% NEB SCH (08:54)
[2017-06-15] MEDS: DECADRON JET NEB (RESP USE) NEB SCH (08:54)
--- NOTE | 2017-06-15 20:21 | PCM.PROG ---
Progress Note - Progress Note for Day of Date: 06/14/17 - Subjective Subjective: WAS ADMITTED FOR COPD EXACERBATION AND ACUTE BRONCHITIS WITH SHORTNESS OF BREATH. TODAY, SHE IS ALERT AND ORIENTED, SITTING UP IN CHAIR ON MORNING ROUNDS. PATIENT REPORTS DECREASE IN SHORTNESS OF BREATH SINCE YESTERDAY. SHE DOES CONTINUE WITH A NON-PRODUCTIVE COUGH TODAY. SHE IS CURRENTLY RECEIVING IV ANTIBIOTICS AND RESPIRATORY TREATMENTS. ON EXAMINATION, LUNGS ARE NOTED WITH EXPIRATORY WHEEZING AND CENTRAL RHONCHI. ABDOMEN IS ROUND, SOFT, AND NON-TENDER WITH NORMAL BOWEL SOUNDS NOTED IN ALL QUADRANTS. HER VITALS SIGNS THIS MORNING ARE 97.5-58-20-98%-160/96. ABNORMAL LAB VALUES THIS MORNING INCLUDE THE FOLLOWING: SODIUM 127, CHLORIDE 90, BUN 29, CREATININE 1.31 , GFR 41, GLUCOSE 190, ALBUMIN 3.0, A/G RATIO 0.8. A CHEST XRAY WAS OBTAINED THIS MORNING AND REPORTS NO ACUTE CARDIOPULMONARY DISEASE. [facility] HAS BEEN CONSULTED FOR RESPIRATORY EQUIPMENT AT HOME. WE WILL CHECK TODAY TO SEE IF THESE THINGS ARE IN PLACE. WE DISCUSSED WITH PATIENT THE NEED FOR INCREASED ORAL INTAKE TO INCREASE HER SODIUM LEVELS. PATIENT VERBALIZED UNDERSTANDING. TODAY, WE WILL CONTINUE WITH CURRENT PLAN OF CARE. WE PLAN TO FOLLOW UP WITH LABS IN THE MORNING AND PLAN FOR DISCHARGE IF PATIENT IS STABLE. - Past Medical Family Social History Past Med/Fam/Surg Hx: No changes since H&P Allergies: Allergies alendronate sodium [From Fosamax] Allergy (Verified 06/07/17 00:56) Penicillins Allergy (Verified 06/06/17 23:46) Sulfa (Sulfonamide Antibiotics) [SULFA] Allergy (Verified 06/07/17 00:56) - Review of Systems ROS: No change since H&P - Vital Signs and I&O's Vital Signs: Temperature 98.2 F Pulse Rate [Left Radial] 63 Pulse Rate 70 Respiratory Rate 20 Blood Pressure [Left Arm] 152/70 Blood Pressure 152/64 O2 Sat by Pulse Oximetry 96 Intake and Output: Intake & Output 06/13/17 06/14/17 06/15/17 06/16/17 11:59 11:59 11:59 11:59 Intake Total 829 471 2079 Balance 604 205 7068 - Physical Exam Oriented: Normal Eyes: Normal Ear: Normal Nose: Normal Throat: Normal Respiratory: Right, Left, Generalized, Wheezes, Rhonchi Cardiovascular: Normal : Normal Auscultation: Bowel Sounds: Normal Palpation: Normal Tenderness: Normal Musculoskeletal: Back:Thoracic Psychiatric: Anxiety Mood Description: Calm Speech Pattern: Clear, Appropriate - Laboratory and Diagnostics Result Diagrams: 06/15/17 03:20 06/15/17 03:20 Labs: 06/07/17 15:42 Blood Blood Culture - Final 06/07/17 15:33 Blood Blood Culture - Final Laboratory WBC 7.4 X10^3/uL (3.6-10.0) 06/15/17 03:20 RBC 4.59 X10^6/uL (3.5-5.4) 06/15/17 03:20 Hgb 13.7 g/dL (12.0-16.0) 06/15/17 03:20 Hct 39.1 % (36.0-47.0) 06/15/17 03:20 MCV 85.1 fL (80.0-100.0) 06/15/17 03:20 MCH 29.9 pg (27.0-34.0) 06/15/17 03:20 MCHC 35.1 g/dL (33.0-35.0) H 06/15/17 03:20 RDW 13.9 % (11.6-16.5) 06/15/17 03:20 Plt Count 160 X10^3/uL (150.0-450.0) 06/15/17 03:20 Plt Count Comment Adequate (ADEQUATE) 06/11/17 04:15 MPV 8.8 fL (7.4-11.0) 06/15/17 03:20 Neut % 77.6 % (42.0-75.0) H 06/15/17 03:20 Lymph % 11.4 % (21.0-51.0) L 06/15/17 03:20 [place] % 9.4 % (0.0-13.0) 06/15/17 03:20 Eos % 1.5 % (0.9-2.9) 06/15/17 03:20 Baso % 0.1 % (0.2-1.0) L 06/15/17 03:20 Neut # 5.8 x10^3/uL (2.2-4.8) H 06/15/17 03:20 Lymph # 0.8 X10^3/uL (1.3-2.9) L 06/15/17 03:20 [place] # 0.7 x10^3/uL (0.3-0.8) 06/15/17 03:20 Eos # 0.1 x10^3/uL (0.0-0.2) 06/15/17 03:20 Baso # 0.0 X10^3/uL (0.0-0.1) 06/15/17 03:20 Absolute Nucleated RBC 0.1 /100WBC 06/15/17 03:20 Total Counted 100 06/11/17 04:15 Neutrophils % (Manual) 94 % (39-76) H 06/11/17 04:15 Band Neutrophils % 1 % (0-10) 06/10/17 04:30 Lymphocytes % (Manual) 4 % (13-43) L 06/11/17 04:15 Monocytes % (Manual) 2 % (4-9) L 06/11/17 04:15 Plt Morphology Comment Normal (NORMAL) 06/11/17 04:15 RBC Morphology Normal (NORMAL) 06/11/17 04:15 INR Target Range - 06/07/17 00:54 INR 0.98 (0.8-1.3) 06/07/17 00:54 PTT 28.2 SECONDS (22.9-36.5) 06/07/17 00:54 PTT Comment - 06/07/17 00:54 D-Dimer 350 ng/mL (0-400) 06/07/17 00:54 Sodium 131 mmol/L (136-145) L 06/15/17 03:20 Corrected Sodium TNP 06/15/17 03:20 Potassium 3.4 mmol/L (3.5-5.1) L 06/15/17 03:20 Chloride 94 mmol/L (98-107) L 06/15/17 03:20 Carbon Dioxide 32.5 mmol/L (21-32) H 06/15/17 03:20 BUN 27 mg/dL (7-18) H 06/15/17 03:20 Creatinine 1.04 mg/dL (0.55-1.02) H 06/15/17 03:20 Est GFR (MDRD) Af Amer > 60 (>60) 06/15/17 03:20 Est GFR (MDRD) Non-Af 54 (>60) L 06/15/17 03:20 Glucose 108 mg/dL (65-99) H 06/15/17 03:20 POC Glucose (mg/dL) 114 mg/dL (65-99) H 06/15/17 06:10 Calcium 8.5 mg/dL (8.5-10.1) 06/15/17 03:20 Corrected Calcium 9.5 mg/dL (8.5-10.1) 06/15/17 03:20 Magnesium 1.8 mg/dL (1.7-2.9) 06/12/17 04:20 Total Bilirubin 0.80 mg/dL (0.2-1.0) 06/15/17 03:20 AST 17 Units/L (15-37) 06/15/17 03:20 ALT 30 Units/L (12-78) 06/15/17 03:20 Alkaline Phosphatase 55 Units/L (46-116) 06/15/17 03:20 Creatine Kinase 366 Units/L (26-192) H 06/07/17 00:54 CK-MB (CK-2) 4.0 ng/mL (0-4.0) 06/07/17 00:54 CK/CKMB % Calc 1.1 % (<4) 06/07/17 00:54 Troponin I < 0.02 ng/mL (0-1.5) 06/07/17 00:54 B-Natriuretic Peptide 63.9 pg/mL (0-79) 06/07/17 00:54 Total Protein 6.0 g/dL (6.4-8.2) L 06/15/17 03:20 Albumin 2.8 g/dL (3.4-5.0) L 06/15/17 03:20 Globulin 3.2 g/dL (2.5-4.5) 06/15/17 03:20 Albumin/Globulin Ratio 0.9 Ratio (1.1-2.1) L 06/15/17 03:20 Specimen Type Clean catch urine 06/07/17 14:25 Urine Color Yellow (YELLOW) 06/07/17 14:25 Urine Appearance Hazy (CLEAR) 06/07/17 14:25 Urine pH 5.0 (5.0 - 8.0) 06/07/17 14:25 Ur Specific [place] 1.010 (1.000-1.030) 06/07/17 14:25 Urine Protein Negative (NEGATIVE) 06/07/17 14:25 Urine Glucose (UA) 4+ (NEGATIVE) 06/07/17 14:25 Urine Ketones Negative (NEGATIVE) 06/07/17 14:25 Urine Occult Blood Negative (NEGATIVE) 06/07/17 14:25 Urine Nitrite Negative (NEGATIVE) 06/07/17 14:25 Urine Bilirubin Negative (NEGATIVE) 06/07/17 14:25 Urine Urobilinogen Normal (NORMAL) 06/07/17 14:25 Ur Leukocyte Esterase Negative (NEGATIVE) 06/07/17 14:25 Urine RBC 0-2 /HPF (NEGATIVE) 06/07/17 14:25 Urine WBC 0-2 /HPF (NEGATIVE) 06/07/17 14:25 Ur Squamous Epith Cells Negative /HPF (NEGATIVE) 06/07/17 14:25 Urine Bacteria Negative /HPF (NEGATIVE) 06/07/17 14:25 Ur Culture Indicated? No/not indicated 06/07/17 14:25 - Plan (1) Bronchitis, acute Status: Acute Qualifiers: Bronchitis organism: other organism Qualified Code(s): J20.8 - Acute bronchitis due to other specified organisms Plan: CONTINUE IV ANTIBIOTICS AND RESPIRATORY TREATMENTS, CONTINUE TO MONITOR LABS AND CHEST XRAY (2) COPD with acute exacerbation Status: Acute Plan: CONTINUE IV ATBX, RESP THERAPY, SUPPLEMENTAL O2, CONTINUE TO MONITOR LABS AND CHEST XRAY
== END 2017-06-15 11:55 | disposition home or self-care (01) | DRG 192 ==
LOC: ER 23:23 → OBSVTOIN 06-07 03:43 → MED/SURG 06-07 03:43
PROVIDERS: ADMIT Internal Medicine; ATTEND Internal Medicine
DX: J44.1 Chronic obstructive pulmonary disease with (acute) exacerbation (principal); J20.8 Acute bronchitis due to other specified organisms; R06.03 Acute respiratory distress; R09.02 Hypoxemia; R51 Headache; R53.1 Weakness; E11.65 Type 2 diabetes mellitus with hyperglycemia; E78.2 Mixed hyperlipidemia; I10 Essential (primary) hypertension
CPT/HCPCS: 36415; 71010; 71250; 80048; 80053; 81001; 82550; 82553; 83735; 83880; 84132; 84484; 85025; 85378; 85610; 85730; 87040; 93005; 93010; 94640; 94760; 96365; 96374; 96375; 99284; A4216; A4222; Q0177; J1815; J1940; J1956; J2920; J2930; J3480; J7620; J7626; J7644

== ENCOUNTER 2017-07-21 17:02 | Emergency (ER) | payer OTHER ==
[2017-07-21 17:06] VITALS: BMI 25.0
--- NOTE | 2017-07-21 17:28 | DR.GENAD ---
HPI - PCP Primary Care Physician: PATTI - Complaint/Symptoms Chief Complaint Doctors Comments: Patient was discharged .07/20 s/p treatment of bronchitic/COPD. this was the first being diagnosed with COPD and the first time on nebulizations. She also admits to seeing a vibration technician recently in [place]. She is on daily oxygen @3L continuously and uses nebs three times a day. She was diagnosed with COPD recently and uses albuterol tid. Recently she admits to tremors. She admits to a long history of cigarette used. Chief Complaint:: PATIENT STATED THAT SHE FEELS LIKE HER HEART HAS BEEN RACING TODAY AND AROUND 4 PM SHE FELT DIZZY AND HER HOME HEALTH NURSE TOLD HER TO COME TO THE ER. - Source History Provided: Patient - Mode of Arrival Mode of Arrival: Ambulatory - Timing Onset of Chief Complaint: 07/21/17 PMH - PMH Past Medical History: Yes Past Medical History: Arthritis, COPD, Diabetes, Dyslipidemia, Hypertension, Sleep Apnea Past Surgical History: Yes Surgical History: Appendectomy, [employer] Surgery - Family History History of Family Medical Conditions: Yes Family Medical History: Diabetes Mellitus, [place], Hypertension - Social History Does patient currently use any type of tobacco product: No Have you used tobacco products in the last 12 months: No Type of Tobacco Use: None Does any household member use tobacco: No Alcohol Use: None Do you use any recreational Drugs:: No Lives With: Family Lives Where: Home - infectious screening In the last 2 months have you had wt loss of >10#?: NO Have you had fever, night sweats or hemotysis?: No Have you traveled outside the country in the last 6 months?: No Isolation: Standard ROS - Review of Systems Eyes: No Symptoms Reported ENTM: No Symptoms Reported Respiratoy: No Symptoms Reported Cardiovascular: No Symptoms Reported Gastrointestinal/Abdominal: No Symptoms Reported Genitourinary: No Symptoms Reported Neurological: Tremors Musculoskeletal: No Symptoms Reported Integumentary: No Symptoms Reported Hematologic/Lymphatic: No Symptoms Reported Endocrine: No Symptoms Reported Psychiatric: No Symptoms Reported All Other Systems: Reviewed and Negative PE - Vital Signs Vitals: Temperature 98.2 F Pulse Rate [Left Brachial] 96 Pulse Rate 113 Respiratory Rate 20 Blood Pressure [Left Arm] 156/88 Blood Pressure 184/89 O2 Sat by Pulse Oximetry 96 - General Limitations: No Limitations General Appearance: Alert, In No Apparent Distress - Head Head Exam: Normal Inspection, Atraumatic - Eyes Eye exam: Normal Appearance, PERRL, EOMI - ENT ENT Exam: Normal Exam External Ear Exam: Normal External Inspection TM/Canal Exam: Bilateral Normal Nose Exam: Normal Nose Exam Mouth Exam: Normal Inspection Throat Exam: Normal Inspection - Neck Neck Exam: Normal Inspection - Chest Chest Inspection: Normal Inspection - Respiratory Respiratory Exam: Normal Lung Sounds Bilat Respiratory Exam: Bilateral Clear to Auscultation - Cardiovascular Cardiovascular Exam: Regular Rate, Normal Rhythm - Abdominal Exam Abdominal Exam: Normal Inspection, Normal Bowel Sounds Abdominal Tenderness: negative: RUQ, RLQ, LUQ, LLQ, Epigastrium, Suprapubic, Diffuse, Mild, Moderate, Severe, Other - Extremities Extremities Exam: Normal Inspection, Full ROM - Back Back Exam: Normal Inspection, Full ROM - Neurologic Neurological Exam: Alert, Oriented X3, CN II-XII Intact - Psychiatric Psychiatric Exam: Normal Affect, Normal Mood, Agitated - Skin Skin Exam: Warm, Dry, Intact Course - Education/Counseling Education/Counseling: Patient, Family Educated On: Treatment, Diagnosis, Prognosis, Needs for Follow Up (I recommended to stop the use of albuterol and substitute with xopenex which is more beta selective.) ROR - Labs Reviewed Result Diagrams: 07/21/17 17:38 07/21/17 17:38 Laboratory: WBC 5.3 X10^3/uL (3.6-10.0) 07/21/17 17:38 RBC 4.45 X10^6/uL (3.5-5.4) 07/21/17 17:38 Hgb 13.0 g/dL (12.0-16.0) 07/21/17 17:38 Hct 37.2 % (36.0-47.0) 07/21/17 17:38 MCV 83.7 fL (80.0-100.0) 07/21/17 17:38 MCH 29.2 pg (27.0-34.0) 07/21/17 17:38 MCHC 34.9 g/dL (33.0-35.0) 07/21/17 17:38 RDW 14.8 % (11.6-16.5) 07/21/17 17:38 Plt Count 176 X10^3/uL (150.0-450.0) 07/21/17 17:38 MPV 8.4 fL (7.4-11.0) 07/21/17 17:38 Neut % 75.4 % (42.0-75.0) H 07/21/17 17:38 Lymph % 10.4 % (21.0-51.0) L 07/21/17 17:38 [place] % 10.2 % (0.0-13.0) 07/21/17 17:38 Eos % 2.8 % (0.9-2.9) 07/21/17 17:38 Baso % 1.2 % (0.2-1.0) H 07/21/17 17:38 Neut # 4.0 x10^3/uL (2.2-4.8) 07/21/17 17:38 Lymph # 0.6 X10^3/uL (1.3-2.9) L 07/21/17 17:38 [place] # 0.5 x10^3/uL (0.3-0.8) 07/21/17 17:38 Eos # 0.2 x10^3/uL (0.0-0.2) 07/21/17 17:38 Baso # 0.1 X10^3/uL (0.0-0.1) 07/21/17 17:38 Absolute Nucleated RBC 0.0 /100WBC 07/21/17 17:38 Sodium 134 mmol/L (136-145) L 07/21/17 17:38 Corrected Sodium 136 mmol/L (136-145) 07/21/17 17:38 Potassium 3.9 mmol/L (3.5-5.1) 07/21/17 17:38 Chloride 97 mmol/L (98-107) L 07/21/17 17:38 Carbon Dioxide 26.7 mmol/L (21-32) 07/21/17 17:38 BUN 30 mg/dL (7-18) H 07/21/17 17:38 Creatinine 2.18 mg/dL (0.55-1.02) H 07/21/17 17:38 Est GFR (MDRD) Af Amer 28 (>60) L 07/21/17 17:38 Est GFR (MDRD) Non-Af 23 (>60) L 07/21/17 17:38 Glucose 186 mg/dL (65-99) H 07/21/17 17:38 Calcium 9.7 mg/dL (8.5-10.1) 07/21/17 17:38 Creatine Kinase 79 Units/L (26-192) 07/21/17 17:38 CK-MB (CK-2) 1.2 ng/mL (0-4.0) 07/21/17 17:38 CK/CKMB % Calc 1.5 % (<4) 07/21/17 17:38 Troponin I < 0.02 ng/mL (0-1.5) 07/21/17 17:38 - XRAY XRAY Interpreted by: Radiologist (Chest: No change, no acute abnormality) - Diagnosis Discharge Problem: tremors secondary to albutero COPD (chronic obstructive pulmonary disease) Qualifiers: COPD type: unspecified COPD Qualified Code(s): J44.9 - Chronic obstructive pulmonary disease, unspecified - Discharge Plan Condition: Stable - Follow ups/Referrals Follow ups/Referrals: Joe Leblanc [Primary Care Provider] - 3 days - Instructions
[2017-07-21 17:50] LABS: BASOPHILS # (AUTO) 0.1 X10^3/uL (0.0-0.1); BASOPHILS % (AUTO) 1.2 % (0.2-1.0); EOSINOPHILS # (AUTO) 0.2 x10^3/uL (0.0-0.2); EOSINOPHILS % (AUTO) 2.8 % (0.9-2.9); HEMATOCRIT 37.2 % (36.0-47.0); LYMPHOCYTES # (AUTO) 0.6 X10^3/uL (1.3-2.9); LYMPHOCYTES % (AUTO) 10.4 % (21.0-51.0); MEAN CORPUSCULAR HEMOGLOBIN 29.2 pg (27.0-34.0); MEAN CORPUSCULAR HGB CONC 34.9 g/dL (33.0-35.0); MEAN CORPUSCULAR VOLUME 83.7 fL (80.0-100.0); MEAN PLATELET VOLUME 8.4 fL (7.4-11.0); MONOCYTES # (AUTO) 0.5 x10^3/uL (0.3-0.8); MONOCYTES % (AUTO) 10.2 % (0.0-13.0); NEUTROPHILS % (AUTO) 75.4 % (42.0-75.0); PLATELET COUNT 176 X10^3/uL (150.0-450.0); RED BLOOD COUNT 4.45 X10^6/uL (3.5-5.4); RED CELL DISTRIBUTION WIDTH 14.8 % (11.6-16.5); WHITE BLOOD COUNT 5.3 X10^3/uL (3.6-10.0)
[2017-07-21 17:59] LABS: CALCIUM 9.7 mg/dL (8.5-10.1); CARBON DIOXIDE 26.7 mmol/L (21-32); CREATININE 2.18 mg/dL (0.55-1.02)
--- NOTE | 2017-07-21 18:03 | RAD ---
Examination: AP chest, portable History: Heart racing, COPD Comparison reference 06/14/2017 Findings: Continued normal heart size with clear lungs. No evidence for pulmonary edema, pneumonia or pneumothorax. Impression: No change; no acute abnormality demonstrated. Reported By:
[2017-07-21] MEDS ORDERED: NS 1000 ML 1,000 ML IV ONE (18:14)
[2017-07-21] MEDS ORDERED: NS 1000 ML 1,000 ML ONE (18:17)
[2017-07-21 18:20] LABS: CKMB % 1.5 % (<4); CREATINE KINASE 79 Units/L (26-192); CREATINE KINASE MB 1.2 ng/mL (0-4.0); TROPONIN I < 0.02 ng/mL (0-1.5)
[2017-07-21 20:33] VITALS: BP 169/79
== END 2017-07-21 20:22 | disposition home or self-care (01) ==
LOC: ER 17:03
DX: J44.9 Chronic obstructive pulmonary disease, unspecified (principal); R25.1 Tremor, unspecified
CPT/HCPCS: 36415; 71010; 80048; 82550; 82553; 84484; 85025; 93005; 93010; 96365; 99283; A4222